=== PATIENT | male | born 1970 | race Caucasian/White ===

== ENCOUNTER 2017-03-22 04:37 | Emergency (ER) | payer OTHER ==
[2017-03-22 07:45] LABS: ADD MAN DIFF? NO; ADD UMIC YES; UR ASCORBIC ACID NEGATIVE (NEGATIVE); UR BACTERIA FEW /HPF (NONE SEEN); UR BILIRUBIN (Dip) NEGATIVE (NEGATIVE); UR BLOOD (Dip) 1+ mg/dL (NEGATIVE); UR CLARITY CLEAR (CLEAR); UR COLOR YELLOW (YELLOW); UR GLUCOSE (Dip) 1+ mg/dL (NEGATIVE); UR KETONES (Dip) TRACE mg/dL (NEGATIVE); UR LEUKOCYTE ESTERASE (Dip) NEGATIVE Leu/ul (NEGATIVE); UR NITRITE (Dip) NEGATIVE (NEGATIVE); UR RBC 4 /HPF (0-5); UR SPECIFIC GRAVITY (Dip) 1.009 (1.003-1.030); UR TOTAL PROTEIN (Dip) 3+ mg/dl (NEGATIVE); UR UROBILINOGEN (Dip) NEGATIVE (NEGATIVE); UR WBC 1 /HPF (0-5)
[2017-03-22 07:50] LABS: BASOPHILS % 0.4 % (0.0-2.0); EOSINOPHILS # 0.2 10^3/ul (0.0-0.5); EOSINOPHILS % 2.2 % (0.0-7.0); HEMATOCRIT 30.7 % (42.0-52.0); HEMOGLOBIN 10.9 g/dl (14.0-18.0); LYMPHOCYTES # 1.2 10^3/ul (0.8-2.9); LYMPHOCYTES % 16.8 % (15.0-51.0); MEAN CORPUSCULAR HEMOGLOBIN 30.9 pg (29.0-33.0); MEAN CORPUSCULAR HGB CONC 35.5 g/dl (32.0-37.0); MEAN PLATELET VOLUME 9.9 fl (7.4-10.4); MONOCYTE # 0.6 10^3/ul (0.3-0.9); MONOCYTES % 8.5 % (0.0-11.0); NEUTROPHIL # 5.3 10^3/ul (1.6-7.5); NEUTROPHILS % 71.7 % (39.0-77.0); PLATELET COUNT 214 10^3/UL (140-415); RED BLOOD COUNT 3.53 10^6/ul (4.70-6.10); RED CELL DISTRIBUTION WIDTH 13.3 % (11.5-14.5)
[2017-03-22 07:50] LABS: WHITE BLOOD COUNT 7.4 10^3/ul (4.8-10.8)
[2017-03-22] MEDS: MAGNESIUM CITRATE 300 ML BTL PO (08:11)
[2017-03-22 08:19] LABS: ALANINE AMINOTRANSFERASE 54 IU/L (13-69); ALBUMIN 3.4 g/dl (3.3-4.9); ALBUMIN/GLOBULIN RATIO 1.17; ALKALINE PHOSPHATASE 87 IU/L (42-121); ANION GAP 14 (8-16); ASPARTATE AMINO TRANSFERASE 40 IU/L (15-46); BILIRUBIN,INDIRECT 0.5 mg/dl (0-1.1); BILIRUBIN,TOTAL 0.5 mg/dl (0.2-1.3); BLOOD UREA NITROGEN 19 mg/dl (7-20); CALCIUM 8.3 mg/dl (8.4-10.2); CARBON DIOXIDE 27 mmol/L (21-31); CHLORIDE 105 mmol/L (97-110); GLUCOSE 149 mg/dl (70-220); LIPASE 36 U/L (23-300); SODIUM 142 mmol/L (135-144); TOTAL PROTEIN 6.3 g/dl (6.1-8.1)
== END 2017-03-22 08:39 | disposition home or self-care (01) ==
LOC: FTE 04:37
DX: K59.00 Constipation, unspecified (principal); E10.9 Type 1 diabetes mellitus without complications; Z79.4 Long term (current) use of insulin
CPT/HCPCS: 36415; 74176; 80053; 81001; 82962; 83690; 85025; 99284-25

== ENCOUNTER 2017-03-27 00:56 | Inpatient (IN) | payer OTHER ==
[2017-03-27 03:00] LABS: ADD MAN DIFF? NO
[2017-03-27 03:02] LABS: BASOPHILS % 0.4 % (0.0-2.0); EOSINOPHILS # 0.3 10^3/ul (0.0-0.5); HEMATOCRIT 28.4 % (42.0-52.0); LYMPHOCYTES # 1.3 10^3/ul (0.8-2.9); LYMPHOCYTES % 17.4 % (15.0-51.0); MEAN CORPUSCULAR HEMOGLOBIN 31.1 pg (29.0-33.0); MEAN CORPUSCULAR HGB CONC 35.2 g/dl (32.0-37.0); MEAN CORPUSCULAR VOLUME 88.2 fl (82.0-101.0); MEAN PLATELET VOLUME 9.3 fl (7.4-10.4); MONOCYTE # 0.9 10^3/ul (0.3-0.9); MONOCYTES % 11.7 % (0.0-11.0); NEUTROPHIL # 4.9 10^3/ul (1.6-7.5); PLATELET COUNT 200 10^3/UL (140-415); RED BLOOD COUNT 3.22 10^6/ul (4.70-6.10); RED CELL DISTRIBUTION WIDTH 13.7 % (11.5-14.5)
[2017-03-27 03:02] LABS: WHITE BLOOD COUNT 7.4 10^3/ul (4.8-10.8)
[2017-03-27 03:22] LABS: ALANINE AMINOTRANSFERASE 87 IU/L (13-69); ALBUMIN 2.9 g/dl (3.3-4.9); ALBUMIN/GLOBULIN RATIO 0.96; ALKALINE PHOSPHATASE 70 IU/L (42-121); ANION GAP 17 (8-16); ASPARTATE AMINO TRANSFERASE 60 IU/L (15-46); BILIRUBIN,INDIRECT 0.1 mg/dl (0-1.1); BILIRUBIN,TOTAL 0.1 mg/dl (0.2-1.3); BLOOD UREA NITROGEN 25 mg/dl (7-20); CALCIUM 8.6 mg/dl (8.4-10.2); CARBON DIOXIDE 29 mmol/L (21-31); CHLORIDE 107 mmol/L (97-110); CREATININE 1.16 mg/dl (0.61-1.24); GLUCOSE 55 mg/dl (70-220); POTASSIUM 3.9 mmol/L (3.5-5.1); TOTAL PROTEIN 5.9 g/dl (6.1-8.1)
[2017-03-27 03:34] LABS: B-TYPE NATRIURETIC PEPTIDE 1950 PG/ML (0-125)
[2017-03-27 03:35] LABS: TROPONIN-I < 0.012 ng/ml (0.00-0.12)
[2017-03-27 03:42] LABS: SODIUM 143 mmol/L (135-144)
[2017-03-27 03:56] LABS: INR 0.97; PARTIAL THROMBOPLASTIN TIME 30.6 Sec (25.0-35.0)
[2017-03-27] MEDS: SOD CHLORIDE 0.9% 100 ML (03:59)
[2017-03-27] MEDS: IODIXANOL LOCM 100 ML BTL (04:00)
[2017-03-27] MEDS: FUROSEMIDE 40 MG INJ IV (05:20)
[2017-03-27] MEDS ORDERED: morphine 2 MG INJ IV (06:30)
[2017-03-27] MEDS ORDERED: VANCOMYCIN IV PER PHARMACY XX (06:30)
[2017-03-27] MEDS ORDERED: NITROGLYCERIN (SL) 0.4 MG TAB SL (06:30)
[2017-03-27] MEDS ORDERED: NACL 0.9% 3 ML SYG IV (06:30)
[2017-03-27] MEDS ORDERED: ALBUTEROL/IPRATROPIUM (NEB) 3 ML AMP HHN (06:30)
[2017-03-27] MEDS ORDERED: HYDROCODONE/APAP (5/325) TAB PO (06:30)
[2017-03-27] MEDS ORDERED: ONDANSETRON 4 MG INJ IV (06:30)
[2017-03-27] MEDS ORDERED: LORAZEPAM 2 MG INJ IV (06:30)
[2017-03-27] MEDS ORDERED: MAGNESIUM HYDROXIDE 30ML CUP PO (06:30)
[2017-03-27] MEDS ORDERED: NA PHOSPHATE/BIPHOS 133 ML ENEMA PR (06:30)
[2017-03-27] MEDS ORDERED: ACETAMINOPHEN 325 MG TAB PO (06:30)
[2017-03-27] MEDS ORDERED: DOCUSATE SODIUM 100 MG CAP PO (06:30)
[2017-03-27] MEDS: CEFTRIAXONE 1 GM/50 ML (PMX) 50 ML IVPB (06:43)
[2017-03-27] MEDS: FAMOTIDINE 20 MG INJ IV ×2 (09:00→22:00)
[2017-03-27] MEDS: INSULIN GLARGINE [LANtus] 3 ML PEN SC ×2 (09:00→21:04)
[2017-03-27] MEDS: GABAPENTIN 300 MG CAP PO ×2 (09:22→20:57)
[2017-03-27] MEDS: hydrALAzine 20 MG INJ IV (09:23)
[2017-03-27] MEDS: HEPARIN 5,000 UNIT/0.5 ML VIAL SC ×2 (09:29→21:05)
[2017-03-27] MEDS ORDERED: LABETALOL HCL 20MG INJ IV (10:00)
[2017-03-27] MEDS: VANCOMYCIN 1.5 GM in DEXTROSE 5% 500 ML IVPB (11:56)
[2017-03-27] MEDS: AMLODIPINE 10 MG TAB PO (12:04)
[2017-03-27] MEDS: INSULIN ASPART [NOVOLOG] 3 ML PEN SC ×3 (12:11→20:58)
[2017-03-27] MEDS: DOCUSATE SODIUM 100 MG CAP PO ×3 (13:00→20:57)
[2017-03-27] MEDS: LORATADINE 10 MG TAB PO (14:33)
[2017-03-27] MEDS: ASPIRIN 81 MG TAB PO (14:40)
[2017-03-27] MEDS: LISINOPRIL 10 MG TAB PO (14:43)
[2017-03-27] MEDS ORDERED: PENDING SANTYL ORDER FOR WOUND CARE XX (16:00)
[2017-03-27] MEDS: FUROSEMIDE 20 MG INJ IV (18:41)
[2017-03-27] MEDS: PSYLLIUM 28% PACKET PO (20:57)
[2017-03-27] MEDS: ATORVASTATIN 20 MG TAB PO (20:57)
[2017-03-27] MEDS: VANCOMYCIN 1 GM 250 ML IVPB (20:57)
[2017-03-28] MEDS: ACCU-CHEK XX (02:00)
[2017-03-28] MEDS: CEFTRIAXONE 1 GM/50 ML (PMX) 50 ML IVPB (06:17)
[2017-03-28] MEDS: FUROSEMIDE 20 MG INJ IV (06:40)
[2017-03-28] MEDS: INSULIN ASPART [NOVOLOG] 3 ML PEN SC ×4 (07:23→20:25)
[2017-03-28] MEDS: VANCOMYCIN 1 GM 250 ML IVPB (07:27)
[2017-03-28 07:38] LABS: ADD MAN DIFF? NO
[2017-03-28 07:40] LABS: BASOPHILS % 0.4 % (0.0-2.0); EOSINOPHILS # 0.4 10^3/ul (0.0-0.5); EOSINOPHILS % 5.1 % (0.0-7.0); HEMATOCRIT 28.1 % (42.0-52.0); HEMOGLOBIN 9.6 g/dl (14.0-18.0); LYMPHOCYTES # 1.3 10^3/ul (0.8-2.9); LYMPHOCYTES % 16.9 % (15.0-51.0); MEAN CORPUSCULAR HEMOGLOBIN 30.4 pg (29.0-33.0); MEAN CORPUSCULAR HGB CONC 34.2 g/dl (32.0-37.0); MEAN CORPUSCULAR VOLUME 88.9 fl (82.0-101.0); MEAN PLATELET VOLUME 9.9 fl (7.4-10.4); MONOCYTE # 0.7 10^3/ul (0.3-0.9); MONOCYTES % 9.5 % (0.0-11.0); NEUTROPHIL # 5.2 10^3/ul (1.6-7.5); NEUTROPHILS % 67.8 % (39.0-77.0); PLATELET COUNT 196 10^3/UL (140-415); RED BLOOD COUNT 3.16 10^6/ul (4.70-6.10); RED CELL DISTRIBUTION WIDTH 13.9 % (11.5-14.5)
[2017-03-28 07:40] LABS: WHITE BLOOD COUNT 7.7 10^3/ul (4.8-10.8)
[2017-03-28 07:53] LABS: HEMOGLOBIN A1C 6.3 % (0-5.9)
[2017-03-28 08:02] LABS: ANION GAP 9 (8-16); BLOOD UREA NITROGEN 28 mg/dl (7-20); CALCIUM 8.2 mg/dl (8.4-10.2); CARBON DIOXIDE 30 mmol/L (21-31); CHLORIDE 105 mmol/L (97-110); CREATININE 1.29 mg/dl (0.61-1.24); MAGNESIUM 1.8 mg/dl (1.7-2.5); PHOSPHORUS 5.2 mg/dl (2.5-4.9); POTASSIUM 3.4 mmol/L (3.5-5.1); SODIUM 141 mmol/L (135-144)
[2017-03-28 08:03] LABS: CHOLESTEROL 133 mg/dl (100-200)
[2017-03-28 08:03] LABS: CHOL/HDL RATIO 4.1 RATIO; HDL CHOLESTEROL 32 mg/dl (28-71); LDL CHOLESTEROL,CALCULATED 88 mg/dl; TRIGLYCERIDES 67 mg/dl (0-149)
[2017-03-28 08:05] LABS: GLUCOSE 43 mg/dl (70-220)
[2017-03-28] MEDS: GABAPENTIN 300 MG CAP PO ×2 (08:49→20:26)
[2017-03-28] MEDS: DOCUSATE SODIUM 100 MG CAP PO ×3 (08:50→20:26)
[2017-03-28] MEDS: PSYLLIUM 28% PACKET PO ×2 (08:50→21:59)
[2017-03-28] MEDS: ASPIRIN 81 MG TAB PO (08:50)
[2017-03-28] MEDS: AMLODIPINE 10 MG TAB PO (08:50)
[2017-03-28] MEDS: HEPARIN 5,000 UNIT/0.5 ML VIAL SC ×2 (08:51→20:34)
[2017-03-28] MEDS: LISINOPRIL 10 MG TAB PO ×2 (08:54→12:05)
[2017-03-28] MEDS: INSULIN GLARGINE [LANtus] 3 ML PEN SC ×2 (08:54→20:34)
[2017-03-28] MEDS: FAMOTIDINE 20 MG INJ IV (08:58)
[2017-03-28] MEDS: LORATADINE 10 MG TAB PO ×2 (08:59→10:55)
[2017-03-28] MEDS: POTASSIUM CHLORIDE 20 MEQ POWDER FOR ORAL SOLN PO (12:26)
[2017-03-28 19:52] LABS: VANCOMYCIN,TROUGH 26.4 ug/ml (10.0-20.0)
[2017-03-28] MEDS: FAMOTIDINE 20 MG TAB PO (20:26)
[2017-03-28] MEDS: ATORVASTATIN 20 MG TAB PO (20:26)
[2017-03-29] MEDS: ACCU-CHEK XX (02:00)
[2017-03-29 05:41] LABS: ADD MAN DIFF? NO
[2017-03-29 05:46] LABS: WHITE BLOOD COUNT 6.6 10^3/ul (4.8-10.8)
[2017-03-29 05:46] LABS: BASOPHILS % 0.6 % (0.0-2.0); EOSINOPHILS # 0.4 10^3/ul (0.0-0.5); EOSINOPHILS % 6.7 % (0.0-7.0); HEMATOCRIT 30.8 % (42.0-52.0); HEMOGLOBIN 10.4 g/dl (14.0-18.0); LYMPHOCYTES # 1.5 10^3/ul (0.8-2.9); LYMPHOCYTES % 23.2 % (15.0-51.0); MEAN CORPUSCULAR HGB CONC 33.8 g/dl (32.0-37.0); MEAN CORPUSCULAR VOLUME 88.8 fl (82.0-101.0); MEAN PLATELET VOLUME 9.8 fl (7.4-10.4); MONOCYTE # 0.7 10^3/ul (0.3-0.9); MONOCYTES % 11.2 % (0.0-11.0); NEUTROPHIL # 3.8 10^3/ul (1.6-7.5); PLATELET COUNT 211 10^3/UL (140-415); RED BLOOD COUNT 3.47 10^6/ul (4.70-6.10); RED CELL DISTRIBUTION WIDTH 13.7 % (11.5-14.5)
[2017-03-29] MEDS: CEFTRIAXONE 1 GM/50 ML (PMX) 50 ML IVPB (05:51)
[2017-03-29 06:07] LABS: ANION GAP 12 (8-16); BLOOD UREA NITROGEN 31 mg/dl (7-20); CALCIUM 8.3 mg/dl (8.4-10.2); CARBON DIOXIDE 30 mmol/L (21-31); CHLORIDE 104 mmol/L (97-110); GLUCOSE 81 mg/dl (70-220); SODIUM 142 mmol/L (135-144)
[2017-03-29] MEDS: INSULIN ASPART [NOVOLOG] 3 ML PEN SC ×4 (07:35→21:04)
[2017-03-29] MEDS: INSULIN GLARGINE [LANtus] 3 ML PEN SC ×3 (08:39→21:01)
[2017-03-29] MEDS: HEPARIN 5,000 UNIT/0.5 ML VIAL SC ×2 (08:40→21:02)
[2017-03-29] MEDS: VANCOMYCIN 1.5 GM in DEXTROSE 5% 500 ML IVPB (08:41)
[2017-03-29] MEDS: ASPIRIN 81 MG TAB PO (08:41)
[2017-03-29] MEDS: GABAPENTIN 300 MG CAP PO ×2 (08:41→21:10)
[2017-03-29] MEDS: PSYLLIUM 28% PACKET PO ×2 (08:42→21:46)
[2017-03-29] MEDS: FAMOTIDINE 20 MG TAB PO ×2 (08:42→21:10)
[2017-03-29] MEDS: DOCUSATE SODIUM 100 MG CAP PO ×3 (09:46→21:09)
[2017-03-29] MEDS: AMLODIPINE 10 MG TAB PO (09:46)
[2017-03-29] MEDS: FUROSEMIDE 20 MG TAB PO (09:46)
[2017-03-29] MEDS: LORATADINE 10 MG TAB PO (09:47)
[2017-03-29] MEDS: LISINOPRIL 10 MG TAB PO (10:11)
[2017-03-29] MEDS: SALINE 0.65% 45 ML NAS SPRAY NASAL ×2 (15:48→21:08)
[2017-03-29] MEDS: ATORVASTATIN 20 MG TAB PO ×2 (21:09→22:11)
[2017-03-30] MEDS: ACCU-CHEK XX (02:04)
[2017-03-30 04:50] LABS: ADD MAN DIFF? NO
[2017-03-30 04:53] LABS: BASOPHILS % 0.3 % (0.0-2.0); EOSINOPHILS # 0.4 10^3/ul (0.0-0.5); EOSINOPHILS % 6.4 % (0.0-7.0); HEMATOCRIT 24.5 % (42.0-52.0); HEMOGLOBIN 8.3 g/dl (14.0-18.0); LYMPHOCYTES # 1.1 10^3/ul (0.8-2.9); LYMPHOCYTES % 18.4 % (15.0-51.0); MEAN CORPUSCULAR HEMOGLOBIN 30.4 pg (29.0-33.0); MEAN CORPUSCULAR HGB CONC 33.9 g/dl (32.0-37.0); MEAN CORPUSCULAR VOLUME 89.7 fl (82.0-101.0); MEAN PLATELET VOLUME 9.8 fl (7.4-10.4); MONOCYTE # 0.6 10^3/ul (0.3-0.9); MONOCYTES % 10.5 % (0.0-11.0); NEUTROPHIL # 3.8 10^3/ul (1.6-7.5); NEUTROPHILS % 64.1 % (39.0-77.0); PLATELET COUNT 165 10^3/UL (140-415); RED BLOOD COUNT 2.73 10^6/ul (4.70-6.10); RED CELL DISTRIBUTION WIDTH 13.5 % (11.5-14.5)
[2017-03-30 05:37] LABS: ANION GAP 10 (8-16); BLOOD UREA NITROGEN 33 mg/dl (7-20); CALCIUM 6.7 mg/dl (8.4-10.2); CARBON DIOXIDE 24 mmol/L (21-31); CHLORIDE 108 mmol/L (97-110); CREATININE 1.18 mg/dl (0.61-1.24); GLUCOSE 205 mg/dl (70-220); POTASSIUM 3.8 mmol/L (3.5-5.1); SODIUM 138 mmol/L (135-144)
[2017-03-30] MEDS: CEFTRIAXONE 1 GM/50 ML (PMX) 50 ML IVPB (06:34)
[2017-03-30] MEDS: INSULIN ASPART [NOVOLOG] 3 ML PEN SC ×4 (07:35→21:12)
[2017-03-30] MEDS: VANCOMYCIN 1.5 GM in DEXTROSE 5% 500 ML IVPB (08:05)
[2017-03-30] MEDS: FAMOTIDINE 20 MG TAB PO ×2 (08:06→21:08)
[2017-03-30] MEDS: DOCUSATE SODIUM 100 MG CAP PO ×3 (08:06→21:08)
[2017-03-30] MEDS: GABAPENTIN 300 MG CAP PO ×2 (08:06→21:08)
[2017-03-30] MEDS: PSYLLIUM 28% PACKET PO ×2 (08:06→21:14)
[2017-03-30] MEDS: ASPIRIN 81 MG TAB PO (08:06)
[2017-03-30] MEDS: SALINE 0.65% 45 ML NAS SPRAY NASAL ×2 (08:06→21:00)
[2017-03-30] MEDS: LORATADINE 10 MG TAB PO (08:07)
[2017-03-30] MEDS: AMLODIPINE 10 MG TAB PO (08:07)
[2017-03-30] MEDS: INSULIN GLARGINE [LANtus] 3 ML PEN SC ×2 (08:07→21:13)
[2017-03-30] MEDS: HEPARIN 5,000 UNIT/0.5 ML VIAL SC ×2 (08:07→21:07)
[2017-03-31] MEDS: ACCU-CHEK XX (02:02)
[2017-03-31 05:39] LABS: ADD MAN DIFF? NO
[2017-03-31 05:41] LABS: BASOPHILS % 0.5 % (0.0-2.0); EOSINOPHILS # 0.4 10^3/ul (0.0-0.5); EOSINOPHILS % 6.1 % (0.0-7.0); HEMOGLOBIN 9.9 g/dl (14.0-18.0); LYMPHOCYTES # 1.3 10^3/ul (0.8-2.9); MEAN CORPUSCULAR HEMOGLOBIN 30.7 pg (29.0-33.0); MEAN CORPUSCULAR HGB CONC 34.1 g/dl (32.0-37.0); MEAN CORPUSCULAR VOLUME 89.8 fl (82.0-101.0); MEAN PLATELET VOLUME 9.8 fl (7.4-10.4); MONOCYTE # 0.8 10^3/ul (0.3-0.9); MONOCYTES % 11.8 % (0.0-11.0); NEUTROPHIL # 3.9 10^3/ul (1.6-7.5); NEUTROPHILS % 61.4 % (39.0-77.0); PLATELET COUNT 214 10^3/UL (140-415); RED BLOOD COUNT 3.23 10^6/ul (4.70-6.10); RED CELL DISTRIBUTION WIDTH 13.4 % (11.5-14.5)
[2017-03-31 05:41] LABS: WHITE BLOOD COUNT 6.4 10^3/ul (4.8-10.8)
[2017-03-31] MEDS: CEFTRIAXONE 1 GM/50 ML (PMX) 50 ML IVPB (06:03)
[2017-03-31 06:04] LABS: ANION GAP 12 (8-16); BLOOD UREA NITROGEN 46 mg/dl (7-20); CALCIUM 8.5 mg/dl (8.4-10.2); CARBON DIOXIDE 26 mmol/L (21-31); CHLORIDE 105 mmol/L (97-110); GLUCOSE 162 mg/dl (70-220); POTASSIUM 4.8 mmol/L (3.5-5.1); SODIUM 138 mmol/L (135-144)
[2017-03-31] MEDS: INSULIN ASPART [NOVOLOG] 3 ML PEN SC ×4 (07:35→20:56)
[2017-03-31] MEDS: VANCOMYCIN 1.5 GM in DEXTROSE 5% 500 ML IVPB (08:26)
[2017-03-31] MEDS: SALINE 0.65% 45 ML NAS SPRAY NASAL ×2 (08:27→10:21)
[2017-03-31] MEDS: ASPIRIN 81 MG TAB PO (10:08)
[2017-03-31] MEDS: LORATADINE 10 MG TAB PO (10:09)
[2017-03-31] MEDS: GABAPENTIN 300 MG CAP PO ×2 (10:09→21:16)
[2017-03-31] MEDS: FAMOTIDINE 20 MG TAB PO ×2 (10:09→21:16)
[2017-03-31] MEDS: AMLODIPINE 10 MG TAB PO (10:10)
[2017-03-31] MEDS: DOCUSATE SODIUM 100 MG CAP PO ×3 (10:10→21:15)
[2017-03-31] MEDS: INSULIN GLARGINE [LANtus] 3 ML PEN SC ×3 (10:13→20:49)
[2017-03-31] MEDS: HEPARIN 5,000 UNIT/0.5 ML VIAL SC ×2 (10:13→21:18)
[2017-03-31] MEDS: PSYLLIUM 28% PACKET PO ×2 (10:15→22:47)
[2017-03-31] MEDS: FUROSEMIDE 40 MG INJ IV (12:54)
[2017-03-31 13:46] LABS: ADD UMIC YES; UR ASCORBIC ACID NEGATIVE (NEGATIVE); UR BILIRUBIN (Dip) NEGATIVE (NEGATIVE); UR BLOOD (Dip) 1+ mg/dL (NEGATIVE); UR CLARITY CLEAR (CLEAR); UR COLOR STRAW (YELLOW); UR GLUCOSE (Dip) NEGATIVE (NEGATIVE); UR KETONES (Dip) NEGATIVE (NEGATIVE); UR LEUKOCYTE ESTERASE (Dip) NEGATIVE Leu/ul (NEGATIVE); UR NITRITE (Dip) NEGATIVE (NEGATIVE); UR RBC 2 /HPF (0-5); UR SPECIFIC GRAVITY (Dip) 1.008 (1.003-1.030); UR TOTAL PROTEIN (Dip) 1+ mg/dl (NEGATIVE); UR UROBILINOGEN (Dip) NEGATIVE (NEGATIVE); UR WBC 1 /HPF (0-5)
[2017-03-31 14:01] LABS: SODIUM,URINE RANDOM 102 mmol/L (30-90)
[2017-03-31 14:01] LABS: CREATININE,URINE RANDOM 33.94 mg/dl (20-370); CREATININE,URINE RANDOM 34.35 mg/dl (20-370); PROTEIN/CREAT RATIO 1.74 RATIO
[2017-03-31 14:04] LABS: SODIUM,URINE RANDOM 103 mmol/L (30-90)
[2017-03-31 14:32] LABS: OSMOLALITY,URINE 340 mOsm/kg (250-1200)
[2017-03-31] MEDS: ATORVASTATIN 20 MG TAB PO (21:16)
[2017-04-01] MEDS: ACCU-CHEK XX (01:58)
[2017-04-01 05:27] LABS: ADD MAN DIFF? NO
[2017-04-01 05:32] LABS: WHITE BLOOD COUNT 6.4 10^3/ul (4.8-10.8)
[2017-04-01 05:32] LABS: BASOPHILS % 0.5 % (0.0-2.0); EOSINOPHILS # 0.4 10^3/ul (0.0-0.5); EOSINOPHILS % 6.6 % (0.0-7.0); HEMOGLOBIN 9.4 g/dl (14.0-18.0); LYMPHOCYTES # 1.6 10^3/ul (0.8-2.9); LYMPHOCYTES % 25.6 % (15.0-51.0); MEAN CORPUSCULAR HEMOGLOBIN 31.2 pg (29.0-33.0); MEAN CORPUSCULAR HGB CONC 34.8 g/dl (32.0-37.0); MEAN CORPUSCULAR VOLUME 89.7 fl (82.0-101.0); MEAN PLATELET VOLUME 10.3 fl (7.4-10.4); MONOCYTE # 0.6 10^3/ul (0.3-0.9); NEUTROPHIL # 3.6 10^3/ul (1.6-7.5); PLATELET COUNT 228 10^3/UL (140-415); RED BLOOD COUNT 3.01 10^6/ul (4.70-6.10); RED CELL DISTRIBUTION WIDTH 13.5 % (11.5-14.5)
[2017-04-01 05:42] LABS: ANION GAP 12 (8-16); BLOOD UREA NITROGEN 55 mg/dl (7-20); CALCIUM 8.4 mg/dl (8.4-10.2); CARBON DIOXIDE 27 mmol/L (21-31); CHLORIDE 105 mmol/L (97-110); CREATININE 1.64 mg/dl (0.61-1.24); GLUCOSE 182 mg/dl (70-220); POTASSIUM 4.4 mmol/L (3.5-5.1); SODIUM 140 mmol/L (135-144)
[2017-04-01] MEDS: VANCOMYCIN 1.5 GM in DEXTROSE 5% 500 ML IVPB (07:55)
[2017-04-01] MEDS: CEFTRIAXONE 1 GM/50 ML (PMX) 50 ML IVPB (07:55)
[2017-04-01] MEDS: INSULIN ASPART [NOVOLOG] 3 ML PEN SC ×4 (08:00→21:00)
[2017-04-01] MEDS: DOCUSATE SODIUM 100 MG CAP PO ×3 (09:00→21:11)
[2017-04-01] MEDS: SALINE 0.65% 45 ML NAS SPRAY NASAL ×2 (09:00→21:00)
[2017-04-01] MEDS: AMLODIPINE 10 MG TAB PO (10:14)
[2017-04-01] MEDS: FAMOTIDINE 20 MG TAB PO ×2 (10:17→21:11)
[2017-04-01] MEDS: ASPIRIN 81 MG TAB PO (10:17)
[2017-04-01] MEDS: GABAPENTIN 300 MG CAP PO ×2 (10:18→21:11)
[2017-04-01] MEDS: LORATADINE 10 MG TAB PO (10:19)
[2017-04-01] MEDS: PSYLLIUM 28% PACKET PO ×2 (10:21→21:23)
[2017-04-01] MEDS: HEPARIN 5,000 UNIT/0.5 ML VIAL SC ×2 (10:32→21:23)
[2017-04-01] MEDS: DAPTOMYCIN 450 MG in SOD CHLORIDE 0.9% 100 ML IVPB (17:31)
[2017-04-01] MEDS: FUROSEMIDE 20 MG TAB PO (17:36)
[2017-04-01] MEDS: ATORVASTATIN 20 MG TAB PO (21:11)
[2017-04-01] MEDS: INSULIN GLARGINE [LANtus] 3 ML PEN SC (21:17)
[2017-04-02] MEDS: ACCU-CHEK XX (01:43)
[2017-04-02 05:57] LABS: ADD MAN DIFF? NO; BASOPHILS % 0.6 % (0.0-2.0); EOSINOPHILS # 0.5 10^3/ul (0.0-0.5); EOSINOPHILS % 6.7 % (0.0-7.0); HEMATOCRIT 28.9 % (42.0-52.0); HEMOGLOBIN 9.9 g/dl (14.0-18.0); LYMPHOCYTES # 1.7 10^3/ul (0.8-2.9); LYMPHOCYTES % 24.7 % (15.0-51.0); MEAN CORPUSCULAR HEMOGLOBIN 30.8 pg (29.0-33.0); MEAN CORPUSCULAR HGB CONC 34.3 g/dl (32.0-37.0); MEAN PLATELET VOLUME 10.1 fl (7.4-10.4); MONOCYTE # 0.8 10^3/ul (0.3-0.9); MONOCYTES % 11.1 % (0.0-11.0); NEUTROPHIL # 3.9 10^3/ul (1.6-7.5); NEUTROPHILS % 56.8 % (39.0-77.0); PLATELET COUNT 217 10^3/UL (140-415); RED BLOOD COUNT 3.21 10^6/ul (4.70-6.10); RED CELL DISTRIBUTION WIDTH 13.1 % (11.5-14.5)
[2017-04-02 05:57] LABS: WHITE BLOOD COUNT 6.9 10^3/ul (4.8-10.8)
[2017-04-02 06:25] LABS: CREATINE KINASE 144 IU/L (23-200)
[2017-04-02] MEDS: CEFTRIAXONE 1 GM/50 ML (PMX) 50 ML IVPB (06:27)
[2017-04-02 06:59] LABS: ANION GAP 14 (8-16); BLOOD UREA NITROGEN 59 mg/dl (7-20); CALCIUM 8.7 mg/dl (8.4-10.2); CARBON DIOXIDE 25 mmol/L (21-31); CHLORIDE 106 mmol/L (97-110); CREATININE 1.53 mg/dl (0.61-1.24); GLUCOSE 144 mg/dl (70-220); POTASSIUM 4.8 mmol/L (3.5-5.1); SODIUM 140 mmol/L (135-144)
[2017-04-02] MEDS: INSULIN ASPART [NOVOLOG] 3 ML PEN SC ×4 (07:35→21:00)
[2017-04-02] MEDS: SALINE 0.65% 45 ML NAS SPRAY NASAL ×2 (09:00→21:00)
[2017-04-02] MEDS: GABAPENTIN 300 MG CAP PO ×2 (09:08→22:12)
[2017-04-02] MEDS: FUROSEMIDE 20 MG TAB PO (09:08)
[2017-04-02] MEDS: PSYLLIUM 28% PACKET PO ×2 (09:08→22:13)
[2017-04-02] MEDS: FAMOTIDINE 20 MG TAB PO ×2 (09:09→22:13)
[2017-04-02] MEDS: AMLODIPINE 10 MG TAB PO (09:09)
[2017-04-02] MEDS: ASPIRIN 81 MG TAB PO (09:09)
[2017-04-02] MEDS: LORATADINE 10 MG TAB PO (09:09)
[2017-04-02] MEDS: DOCUSATE SODIUM 100 MG CAP PO ×3 (09:09→22:13)
[2017-04-02] MEDS: HEPARIN 5,000 UNIT/0.5 ML VIAL SC ×2 (09:12→22:24)
[2017-04-02] MEDS: DAPTOMYCIN 450 MG in SOD CHLORIDE 0.9% 100 ML IVPB (12:51)
[2017-04-02] MEDS: ATORVASTATIN 20 MG TAB PO (22:12)
[2017-04-02] MEDS: INSULIN GLARGINE [LANtus] 3 ML PEN SC (22:26)
[2017-04-03] MEDS: ACCU-CHEK XX (02:26)
[2017-04-03] MEDS: CEFTRIAXONE 1 GM/50 ML (PMX) 50 ML IVPB (06:01)
[2017-04-03 07:45] LABS: ADD MAN DIFF? NO
[2017-04-03 07:48] LABS: WHITE BLOOD COUNT 7.2 10^3/ul (4.8-10.8)
[2017-04-03 07:48] LABS: BASOPHILS % 0.4 % (0.0-2.0); EOSINOPHILS # 0.4 10^3/ul (0.0-0.5); EOSINOPHILS % 6.1 % (0.0-7.0); HEMATOCRIT 28.8 % (42.0-52.0); HEMOGLOBIN 9.8 g/dl (14.0-18.0); LYMPHOCYTES # 1.5 10^3/ul (0.8-2.9); MEAN CORPUSCULAR HEMOGLOBIN 30.6 pg (29.0-33.0); MEAN PLATELET VOLUME 9.9 fl (7.4-10.4); MONOCYTE # 0.8 10^3/ul (0.3-0.9); MONOCYTES % 10.4 % (0.0-11.0); NEUTROPHIL # 4.5 10^3/ul (1.6-7.5); PLATELET COUNT 238 10^3/UL (140-415); RED CELL DISTRIBUTION WIDTH 13.1 % (11.5-14.5)
[2017-04-03 08:11] LABS: ANION GAP 14 (8-16); BLOOD UREA NITROGEN 62 mg/dl (7-20); CALCIUM 8.8 mg/dl (8.4-10.2); CARBON DIOXIDE 23 mmol/L (21-31); CHLORIDE 107 mmol/L (97-110); CREATININE 1.58 mg/dl (0.61-1.24); GLUCOSE 186 mg/dl (70-220); POTASSIUM 4.7 mmol/L (3.5-5.1); SODIUM 139 mmol/L (135-144)
[2017-04-03] MEDS: INSULIN ASPART [NOVOLOG] 3 ML PEN SC ×2 (08:13→12:57)
[2017-04-03] MEDS: SALINE 0.65% 45 ML NAS SPRAY NASAL (09:00)
[2017-04-03] MEDS: AMLODIPINE 10 MG TAB PO (09:43)
[2017-04-03] MEDS: LORATADINE 10 MG TAB PO (09:44)
[2017-04-03] MEDS: PSYLLIUM 28% PACKET PO (09:45)
[2017-04-03] MEDS: FUROSEMIDE 20 MG TAB PO (09:45)
[2017-04-03] MEDS: FAMOTIDINE 20 MG TAB PO (09:48)
[2017-04-03] MEDS: ASPIRIN 81 MG TAB PO (09:48)
[2017-04-03] MEDS: GABAPENTIN 300 MG CAP PO (09:48)
[2017-04-03] MEDS: DOCUSATE SODIUM 100 MG CAP PO ×2 (09:49→13:00)
[2017-04-03] MEDS: HEPARIN 5,000 UNIT/0.5 ML VIAL SC (09:56)
[2017-04-03] MEDS: DAPTOMYCIN 450 MG in SOD CHLORIDE 0.9% 100 ML IVPB (13:19)
== END 2017-04-03 15:50 | disposition home health service (06) | DRG 291 ==
LOC: E/R 00:56 → MS3 05:09
DX: I13.0 Hypertensive heart and chronic kidney disease with heart failure and stage 1 through stage 4 chronic kidney disease, or unspecified chronic kidney disease (principal); I50.31 Acute diastolic (congestive) heart failure; N17.9 Acute kidney failure, unspecified; E11.22 Type 2 diabetes mellitus with diabetic chronic kidney disease; E11.42 Type 2 diabetes mellitus with diabetic polyneuropathy; M86.9 Osteomyelitis, unspecified; E11.621 Type 2 diabetes mellitus with foot ulcer; I16.0 Hypertensive urgency; E11.69 Type 2 diabetes mellitus with other specified complication; N18.9 Chronic kidney disease, unspecified; D63.1 Anemia in chronic kidney disease; Z79.4 Long term (current) use of insulin
CPT/HCPCS: 36415; 70490; 71045; 71275; 76775; 80048; 80053; 80061; 80202; 81001; 81003; 82540; 82550; 82570; 82962; 83036; 83735; 83880; 83935; 84100; 84155; 84300; 84439; 84443; 84484; 85025; 85610; 85730; 93005; 93306; 93970; 96374; 96375; 99291-25; J1940